=== PATIENT | male | born 1985 | race Caucasian/White ===

== ENCOUNTER 2019-03-15 20:59 | Emergency (ER) | payer OTHER ==
[2019-03-15] MEDS: LIDOCAINE HCL 1% PF 300MG/30ML VIAL ONE (22:00)
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
[2019-03-15] MEDS: AMOXICILLIN 500 MG CAPSULE PO ONE (22:45)
[2019-03-15 23:00] VITALS: BP 128/68
== END 2019-03-15 22:50 | disposition home or self-care (01) ==
LOC: ED 20:59
DX: S01.511A Laceration without foreign body of lip, initial encounter (principal); Y04.0XXA Assault by unarmed brawl or fight, initial encounter; Y93.89 Activity, other specified; Y92.9 Unspecified place or not applicable
CPT/HCPCS: 12013; 99282; J2001